=== PATIENT | male | born 1955 | race Caucasian/White ===

== ENCOUNTER → 2020-02-10 | Outpatient (CLI) | payer MEDICAID ==
[~2020-02-10] MED LIST: BAY PO; CLOPIDOGREL75 M1 PO; LIPITOR80 MG PO; METOPROLOL SUCC25 M2 PO; ZES5 PO
== END | disposition home or self-care (01) ==
LOC: LB 10:21
DX: R10.2 Pelvic and perineal pain (principal)

== ENCOUNTER → 2020-02-14 | Outpatient (CLI) | payer MEDICAID | END | disposition home or self-care (01) | LOC: CT 02-13 09:00 | PROVIDERS: ATTEND Student in an Organized Health Care Education/Training Program | PROC: BW211ZZ Computerized Tomography (CT Scan) of Abdomen and Pelvis using Low Osmolar Contrast (ICD-10-PCS; principal; 2020-02-14) | DX: R10.31 Right lower quadrant pain (principal) | CPT/HCPCS: Q9967 ==